=== PATIENT | male | born 1970 | race Caucasian/White ===

== ENCOUNTER 2023-12-14 08:10 | Emergency (ER) | payer OTHER, SELFPAY ==
[2023-12-14] VITALS (18 sets, daily range): BP systolic 125–177; BP diastolic 68–100; PULSE 84–108; TEMP 36.5; O2SAT 96–99; BMI 35.6
--- NOTE | 2023-12-14 08:29 | ECG_ITS ---
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
--- NOTE | 2023-12-14 08:29 | XR_ITS ---
The [address] [address] Patient Name: FLORY AGEE MRN: [id number] date: 1970 Sex: M Assigned Patient Location: ER Current Patient Location: ER Accession/Order Number: [id number] Exam Date: 12/14/2023 08:50 Report Date: 12/14/2023 09:13 At the request of: MICHELLE NUNES Procedure: XR chest 1V EXAM: Chest x-ray HISTORY: . chest pain . COMPARISON: None. TECHNIQUE: Single view of the chest FINDINGS: Heart and vascularity are unremarkable. Lungs are free of focal infiltrates. Grossly no bony abnormality is appreciated. EKG leads overlie the chest. XR/XR chest 1V IMPRESSION: Heart or lung disease identified. Electronically authenticated by: CARMELITA STEWART Date: 12/14/2023 09:13
[2023-12-14 08:40] LABS: Basophils Absolute Auto 0.1 10^3/uL (0.0-0.1); Basophils Percent Auto 0.6 % (0.2-2.0); Eosinophils Percent Auto 0.1 % (0.9-7.0); Hematocrit 47.6 % (42.0-54.0); Hemoglobin 15.2 g/dL (14.0-18.0); Immature Granulocytes Abs Auto 0.15 10^3/uL (0.00-0.03); Immature Granulocytes Pct Auto 1.8 % (0.0-0.5); Lymphocytes Percent Auto 11.5 % (20.5-60.0); Mean Corpuscular HGB Conc 31.9 g/dL (29.9-35.2); Mean Corpuscular Hemoglobin 27.9 pg (25.9-34.0); Mean Corpuscular Volume 87.5 fL (80.0-94.0); Mean Platelet Volume 10.2 fL (9.5-13.5); Monocytes Absolute Auto 0.8 10^3/uL (0.3-0.8); Monocytes Percent Auto 9.6 % (1.7-12.0); Neutrophils Absolute Auto 6.4 10^3/uL (1.4-6.5); Neutrophils Percent Auto 76.4 % (43.0-75.0); Platelet Count 188 10^3/uL (150-450); Red Blood Count 5.44 10^6/uL (4.70-6.10); Red Cell Distribution Width 13.3 % (11.0-15.0); White Blood Count 8.4 10^3/uL (4.0-11.0)
[2023-12-14 09:04] LABS: D Dimer 3.61 mg/L FEU (<=0.59)
--- NOTE | 2023-12-14 09:13 | CT_ITS ---
[address] [address] Patient Name: FLORY AGEE MRN: [id number] date: 1970 Sex: M Assigned Patient Location: ER Current Patient Location: ER Accession/Order Number: [id number] Exam Date: 12/14/2023 09:33 Report Date: 12/14/2023 10:36 At the request of: MICHELLE NUNES Procedure: CT angio chest EXAM: CT angio chest HISTORY: Dyspnea/elevated D-dimer COMPARISON: 12/14/2023 TECHNIQUE: Dose reduction techniques were achieved by using automated exposure control and/or adjustment of mA and/or kV according to patient size and/or use of iterative reconstruction technique.CT of the chest with contrast. FINDINGS: Inferior visualized portion of the thyroid gland is normal. No supraclavicular adenopathy. No axillary adenopathy. No mediastinal adenopathy. Heart size is normal. No pericardial effusion. Coronary artery calcifications. No pulmonary embolism evaluated to the level of the subsegmental pulmonary arteries. No acute aortic abnormality. Aortic arch branch vessels are patent. No acute osseous abnormality. No large pulmonary lung nodules or masses. Normal alignment of the thoracic spine. Vertebral body height is preserved. Intervertebral disc height is preserved. No acute abnormality of the visualized portions of the upper abdomen. CT/CT angio chest IMPRESSION: 1. No pulmonary embolism evaluated to the level of the subsegmental pulmonary arteries. 2. No acute aortic abnormality. 3. No acute abnormality of the visualized portions of the upper abdomen. Electronically authenticated by: BELINDA THORPE Date: 12/14/2023 10:36
--- NOTE | 2023-12-14 09:13 | ED.GENADUL1 ---
HPI HPI - General Adult General Chief complaint: Chest Pain Stated complaint: CHEST PAIN/FATIGUE Time Seen by Provider: 12/14/23 09:04 Source: patient and family Mode of arrival: walk-in History of Present Illness HPI narrative: This patient is here complaining of multiple symptoms. He says he took COVID test at home to make sure that was not a problem and it was negative. He does not have any cough and no real history of fever. He just has a little bit of fatigability decreased energy feel lightheaded. He has had coronary stents in the past and does take Plavix and aspirin on a daily basis. He has not had any swelling of his extremities and he denies any history of DVT or PE. He says his joints are achy but he does not notice any swelling of any of his joints. Does not have nausea vomiting or diarrhea. Has not had a change in his medications recently. This has been going on for several days. Related Data Home Medications ?Medication ?Instructions ?Recorded ?Confirmed clopidogrel 75 mg tablet 75 mg PO DAILY 12/14/23 12/14/23 metformin 500 mg tablet 1,000 mg PO BID 12/14/23 12/14/23 metoprolol tartrate 25 mg tablet 25 mg PO Q12H 12/14/23 12/14/23 pregabalin 100 mg capsule 100 mg PO Q12H 12/14/23 12/14/23 Allergies Allergy/AdvReac Type Severity Reaction Status Date / Time No Known Drug Allergies Allergy Verified 12/14/23 08:19 Opioid HPI Opioid Management Most Recent Opioid Data: No Data to Display Exam Narrative Exam Narrative: This patient is awake alert healthy does not appear an extremis. Modest anxiety. Pulse oximetry is normal on room air 98%. Overall healthy appearing skin is warm and dry mucous memories are moist and pink. There is no evidence of pallor or scleral icterus. Examination lungs shows lungs to be completely clear no wheeze rales or rhonchi Heart sounds are normal with no S3-S4 or murmur. There is no pericardial rub. Rhythm is normal with no ectopy during auscultation. Cognition mentation and neurological status is normal. Extremities showed no edema phlebitis or warmth. Additionally none of his joints are hot red or swollen. He does not complain of any any abdominal pain. Constitutional Vital Signs, click to edit/add: Last Vital Signs Temp 97.7 F 12/14/23 08:16 Pulse 89 12/14/23 10:40 Resp 24 H 12/14/23 10:40 BP 130/78 12/14/23 10:30 Pulse Ox 98 12/14/23 10:40 O2 Del Method Room Air 12/14/23 08:16 Course Vital Signs Vital signs: Vital Signs Temperature 97.7 F 12/14/23 08:16 Pulse Rate 108 H 12/14/23 08:16 Respiratory Rate 20 12/14/23 08:16 Blood Pressure 177/100 H 12/14/23 08:16 Pulse Oximetry 97 12/14/23 08:16 Oxygen Delivery Method Room Air 12/14/23 08:16 Temperature 97.7 F 12/14/23 08:16 Pulse Rate 89 12/14/23 10:40 Respiratory Rate 24 H 12/14/23 10:40 Blood Pressure 130/78 12/14/23 10:30 Pulse Oximetry 98 12/14/23 10:40 Oxygen Delivery Method Room Air 12/14/23 08:16 Medical Decision Making [facility] Narrative Medical decision making narrative: Patient presents with months of nonspecific symptomatology and no obvious abnormalities on his clinical exam. Nonetheless we want to rule out underlying cardiovascular disease or possible pulmonary embolism. In fact his D-dimer was substantially elevated so CTA was pursued. That study was read by the radiologist as negative for any acute findings. Cardiac troponin white blood cell count and basic chemistries were essentially normal with a mild abnormality of serum sodium. He does take metformin his glucose very minimally elevated but I do not believe is responsible for his symptoms. Most likely explanation is that he has a viral syndrome. He was advised to follow-up with his primary care doctor at this time no antibiotic therapy seem warranted at this moment Lab Data Labs: Lab Results 12/14/23 Range/Units 08:20 WBC 8.4 (4.0-11.0) 10^3/uL RBC 5.44 (4.70-6.10) 10^6/uL Hgb 15.2 (14.0-18.0) g/dL Hct 47.6 (42.0-54.0) % MCV 87.5 (80.0-94.0) fL MCH 27.9 (25.9-34.0) pg MCHC 31.9 (29.9-35.2) g/dL RDW 13.3 (11.0-15.0) % Plt Count 188 (150-450) 10^3/uL MPV 10.2 (9.5-13.5) fL Neut % (Auto) 76.4 H (43.0-75.0) % Lymph % (Auto) 11.5 L (20.5-60.0) % [place] % (Auto) 9.6 (1.7-12.0) % Eos % (Auto) 0.1 L (0.9-7.0) % Baso % (Auto) 0.6 (0.2-2.0) % Neut # (Auto) 6.4 (1.4-6.5) 10^3/uL Lymph # (Auto) 1.0 L (1.2-3.8) 10^3/uL [place] # (Auto) 0.8 (0.3-0.8) 10^3/uL Eos # (Auto) 0.0 (0.0-0.7) 10^3/uL Baso # (Auto) 0.1 (0.0-0.1) 10^3/uL Abs Immat Gran (auto) 0.15 H (0.00-0.03) 10^3/uL Imm/Tot Granulo (auto) 1.8 H (0.0-0.5) % D-Dimer 3.61 H* (<=0.59) mg/L FEU Sodium 127 L (136-145) mmol/L Potassium 4.4 (3.5-5.1) mmol/L Chloride 92 L (98-107) mmol/L Carbon Dioxide 9.1 L (21.0-32.0) mmol/L Anion Gap 30.3 BUN 23.0 H (7.0-18.0) mg/dL Creatinine 1.26 (0.70-1.30) mg/dL Est GFR ( Amer) >60 (>=60) Est GFR (Non-Af Amer) 60 (>=60) BUN/Creatinine Ratio 18.3 Glucose 149 H (74-106) mg/dL Calcium 9.1 (8.5-10.1) mg/dL Total Bilirubin 0.7 (0.2-1.0) mg/dL Direct Bilirubin 0.2 (0.0-0.2) mg/dL AST 37 (15-37) U/L ALT 62 (16-63) U/L Alkaline Phosphatase 82 (46-116) U/L Troponin I High Sens 7.4 (4.0-76.1) pg/mL NT-Pro-B Natriuret Pep 286.0 (<=900.0) pg/mL Total Protein 9.0 H (6.4-8.2) g/dL Albumin 3.9 (3.4-5.0) g/dL Globulin 5.1 g/dL Albumin/Globulin Ratio 0.8 Discharge Plan Discharge Stand Alone Forms: Portal Instructions Chief Complaint: Chest Pain Clinical Impression: Acute viral syndrome Patient Disposition: Home, Self-Care Time of Disposition Decision: 10:55 Prescriptions / Home Meds: No Action metformin 500 mg tablet 1,000 mg PO BID clopidogrel 75 mg tablet 75 mg PO DAILY metoprolol tartrate 25 mg tablet 25 mg PO Q12H pregabalin 100 mg capsule 100 mg PO Q12H Print Language: Lao Additional Instructions: Follow-up with your primary care doctor if symptoms would persist for consideration of further evaluation and testing Referrals: Physician,Non-Staff, [Primary Care Provider] - 1 week
[2023-12-14 09:58] LABS: Anion Gap 30.3; BUN Creatinine Ratio 18.3; Calcium 9.1 mg/dL (8.5-10.1); Carbon Dioxide 9.1 mmol/L (21.0-32.0); Chloride 92 mmol/L (98-107); Estimated GFR (African America >60 (>=60); Estimated GFR (Non-African Ame 60 (>=60); Glucose 149 mg/dL (74-106); Potassium 4.4 mmol/L (3.5-5.1); Sodium 127 mmol/L (136-145); Troponin I High Sensitivity 7.4 pg/mL (4.0-76.1)
[2023-12-14 09:59] LABS: Alanine Aminotransferase 62 U/L (16-63); Albumin Globulin Ratio 0.8; Albumin Level 3.9 g/dL (3.4-5.0); Alkaline Phosphatase 82 U/L (46-116); Aspartate Amino Transferase 37 U/L (15-37); Bilirubin Direct 0.2 mg/dL (0.0-0.2); Bilirubin Total 0.7 mg/dL (0.2-1.0); Globulin 5.1 g/dL
== END 2023-12-14 11:10 | disposition home or self-care (01) ==
PROVIDERS: Emergency Provider Emergency Medicine Emergency Medical Services
DX: B34.9 Viral infection, unspecified (principal); Z95.5 Presence of coronary angioplasty implant and graft; Z79.02 Long term (current) use of antithrombotics/antiplatelets; Z79.82 Long term (current) use of aspirin
CPT/HCPCS: 36415; 71045; 71275; 80048; 80076; 83880; 84484; 85025; 85378; 93005; 99285; Q9967

== ENCOUNTER 2023-12-25 18:43 | Outpatient (OUT) | payer OTHER, SELFPAY ==
--- NOTE | 2023-12-25 18:48 | US_ITS ---
[address] [address] Patient Name: FLORY AGEE MRN: [id number] date: 1970 Sex: M Assigned Patient Location: US Current Patient Location: Accession/Order Number: [id number] Exam Date: 12/25/2023 18:55 Report Date: 12/26/2023 07:15 At the request of: SUSANA STEPHENS Procedure: US venous doppler LE LT EXAM: US venous doppler LE LT HISTORY: GENERALIZED EDEMA R60.1 COMPARISON: None. TECHNIQUE: Grayscale, color and Doppler FINDINGS: Region: Left leg Thrombus: None Flow: Normal Compressibility: Normal Augmentation: Normal Other: Subcutaneous edema in the calf US/US venous doppler LE LT IMPRESSION: No deep or superficial vein thrombus identified in the left leg Electronically authenticated by: CARMELITA LI Date: 12/26/2023 07:15
--- OUTSIDE RECORDS SUMMARY | 2023-12-25 18:48 | XMS_ITS | CCD ---
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 Role Phone Den Lloyd Unavailable Unavailable NONE, XXXX Unavailable Unavailable Den Lloyd Unavailable Unavailable NONE, XXXX Unavailable Unavailable DR IVON YOUNG Admitting Unavailable DR IVON YOUNG Attending Unavailable [facility] Primary Care Unavailable DR IVON YOUNG Consulting Unavailable NATASHA Kenyon Attending Provider Abdifatah Kenyon Unavailable NO FAMILY, PHYSICIAN Primary Care Unavailable Abdifatah Kenyon Admitting Unavaila ble Abdifatah Kenyon Attending Unavaila ble Medications Current Medications Medication Drug Class(es) Dates Sig (Normalized) Sig (Original) clopidogrel 75 mg oral tablet (1 source) P2Y12 Platelet Inhibitor take 1 tablet by mouth every twenty-four hours Plavix 75 MG 1 tablet Orally Once a day Active metoprolol tartrate 50 mg oral tablet (1 source) beta-Adrenergic Alicia take 1 tablet by mouth every twelve hours Metoprolol Tartrate 50 MG 1 tablet with food Orally Twice a day Active naproxen 500 mg oral tablet (1 source) Nonsteroidal Anti-inflammatory Drug Start: 01-07-2023 take 1 tablet by mouth every twelve hours Naproxen 500 MG 1 tablet with food or milk Orally Twice a day for 7 days Dec, Active rosuvastatin calcium 10 mg oral tablet (1 source) HMG-CoA Reductase Inhibitor take 1 tablet by mouth every twenty-four hours Crestor 10 MG 1 tablet Orally Once a day Active SITagliptin 50 mg oral tablet (1 source) Dipeptidyl Peptidase 4 Inhibitor Januvia 50 MG as directed Orally Active Problems Active Problems Problem Classification Problem Date Documented Da te Episodic/Chronic Acute bronchitis (1 source) Acute bronchitis, unspecified; Translations: [ACUTE BRONCHITIS UNSPECIFIED] Onset: 03-25-2023 Episodic Sprains and strains (1 source) Strain of unspecified muscle and tendon at ankle and foot level, left foot, initial encounter Episodic Unclassified (3 sources) CONTACT W/AND (SUSP) EXPOS COVID-19; Translations: [CONTACT W/AND (SUSP) EXPOS COVID-19] Onset: 10-06-2022 Past or Other Problems Problem Classification Problem Date Documented Da te Episodic/Chronic Other connective tissue disease (2 sources) Pain in left foot; Translations: [Pain in left foot] Onset: 01-07-2023 Episodic Unclassified (1 source) CONTACT W/AND (SUSP) EXPOS COVID-19; Translations: [CONTACT W/AND (SUSP) EXPOS COVID-19] Onset: 10-03-2022 Results Test Name Value Interpretation Reference Range Facil ity XR foot LT min 3V*on 023 XR foot LT min 3V* [facility] [place] [address] XRay Report Signed Patient: Anthony Garrett MR#: [id number] : 1970 Acct:[id number] Age/Sex: 52 / M ADM Date: 01/07/23 Loc: [id number] Room: Type: [facility] Attending Dr: Abdifatah Kenyon NP-C Copies to: Abdifatah PRITCHETT-C Ordering Provider: Abdifatah WILBURNP-C Date of Service: 01/07/23 XR/XR foot LT min 3V*: Foot pain, left 3 views left foot plain film COMPARISON:None HISTORY: Left foot pain ACUTE FINDINGS: None DEGENERATIVE CHANGE: Unremarkable SOFT TISSUE FINDINGS: Unremarkable JOINT EFFUSION: None POSTOP CHANGES: None BONE MINERALIZATION: Adequate XR/XR foot LT min 3V* IMPRESSION: No acute findings. Impression dictated by: Efe Doran M.D.01/07/2023 6:08 PM Dictation Location: [place] [address] Transcribed By: [facility] 01/07/231807 Dictated By: Efe Doran DO 01/07/231803 Signed By: 01/07/231807 Normal [facility] Covid-19 PCR (CVDTB)on 09-13 SARS-CoV-2 (COVID-19) RNA NOVA+probe Ql (Unsp spec) Not detected Normal NOT DETECTED [facility] Comment on above: Result Comment: This test is not yet approved or cleared by the [place] FDA. When there are no FDA-approved or cleared tests available, and other criteria are met, FDA can make tests available under an emergency access mechanism called an Emergency Use Authorization (EUA). The EUA for this test is supported by the [place] of Health and Human Service's (HHS's) declaration that circumstances exist to justify the emergency use of in vitro diagnostics for the detection and/or diagnosis of the virus that causes COVID-19. This EUA will remain in effect (meaning this test can be used) for the duration of the COVID-19 declaration justifying emergency of IVDs, unless it is terminated or revoked by FDA (after which the test may no longer be used). When diagnostic testing is negative, the possibility of a false negative should be considered in the context of a patient's recent exposures and the presence of clinical signs and symptoms consistent with SARS-CoV-2. Performed By: #### C VDTB #### [facility] [address] [place] [address] Dr. Ksenia Rolle SYMPTOMATIC COVID-19 ANTIGEN on 10-03-2022 EUA Statement SEE BELOW Normal The [facility] Comment on above: Result Comment: This test has not been FDA cleared or approved, but has been authorized by the FDA under an Emergency Use Authorization (EUA) for use by authorized laboratories certified under CLIA that meet the requirements to perform moderate or high complexity testing. This test has been authorized only for the detection of proteins from SARS-CoV-2, not for any other viruses or pathogens. The emergency use of this test is authorized for the duration of the declaration that circumstances exist justifying the authorization of emergency use of in vitro diagnostic tests for detection and/or diagnosis of Covid-19 under section 564(b)(1) of the Act, 21 U.S.C. 360bbb-3(b)(1), unless the declaration is terminated or authorization is revoked sooner. Performed By: #### C VDAGS #### [facility] [address] [place] [address] Dr. Ksenia Rolle SARS-CoV-2 (COVID-19) RNA NOVA+probe Ql (Unsp spec) Negative Normal NEGATIVE [facility] Comment on above: Performed By: #### C VDAGS #### [facility] [address] [address] [address] Ksenia Rolle Vital Signs Date Time Vital Sign Value Performing Clinician Facility 01-07-2023 17:35-0400 Body height Abdifatah Kenyon Other [facility] Other 01-07-2023 17:35-0400 Body mass index (BMI) [Ratio] 38.02 kg/m2 Abdifatah Kenyon Other [facility] Other 01-07-2023 17:35-0400 Body weight 120.2 kg Abdifatah Kenyon Other [facility] Other 01-07-2023 17:35-0400 Diastolic blood pressure 80 mm[Hg] Abdifatah Kenyon Other [facility] Other 01-07-2023 17:35-0400 Respiratory rate 20 /min Abdifatah Kenyon Other [facility] Other 01-07-2023 17:35-0400 SaO2% (BldA) [Mass fraction] 99 % Abdifatah Kenyon Other [facility] Other 01-07-2023 17:35-0400 Systolic blood pressure 121 mm[Hg] Abdifatah Kenyon Other [employer] Other Encounters Encounter Date Encounter Type Care Provider Facility Start: 01-07-2023 End: 01-07-2023 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 2017 Self-pay 1970 Unknown [id number] 1959 Unknown [id number] Unknown [id number] Social History Date Type Detail Facility Tobacco smoking status NHIS Unknown if ever smoked [facility] Work Phone: Start: 1970 Sex Assigned At Male [facility] Sex Assigned At Sex Assigned At Bir th [employer] Other Evaluation note 01-07-2023 Note Date & Type Note Facility 01-07-2023 Evaluation note Encounter Date Diagnosis Assessment Notes Dec, Foot pain, left (ICD-10 - M79.672) Dec, Strain of left foot, initial encounter (ICD-10 - S96.912A) Rest, ice as needed, keep the foot elevated. Follow up with pcp in 7 days if symptoms do not improve. I personally reviewed and interpreuted all of the xray imaging. There are nor appreciable fractures. Given history, exam, and imaging, findings, diagnosis is consistent with strain of left foot. Will prescribe course of naproxen. Offered patient doris wrap but he would prefer not to use an doris wrap. [facility] [employer] Other Evaluation note Note Date & Type Note Facility Evaluation note No assessment information availa [facility] Work Phone: History general Narrative - Reported Note Date & Type Note Facility History general Narrative - Reported Type Medical History HTN Medical History diabetic Surgical History appendix Surgical History knee Surgical History vasectomy [facility] [employer] Other Summary Purpose Family History No Family History Records FoundNo Family History Records FoundNo Family History Records Found Advance Directives No Advanced Directives Records FoundNo Advanced Directives Records FoundNo Advanced Directives Records Found Additional Source Comments (unrecognized sect ion and content) No Status Records FoundNo Status Records FoundNo Status Records Found INFORMATION SOURCE (unrecogn ized section and content) DATE CREATED AUTHOR 01/06/2018 [facility] DATE CREATED AUTHOR AUTHOR'S ORGANIZ ATION 10/07/2022 [facility] DATE CREATED AUTHOR AUTHOR'S ORGANIZ ATION 12/24/2023 [facility] Care Teams (unrecognized sec tion and content) Team Status: Inactive Member Role Status Dates GERBER [employer] Attending Provider Activ e Goals (unrecognized section and content) Goals may be documented in a n alternate sectionNo Information REASON FOR VISIT (unrecogniz ed section and content) POSS LEFT FOOT INJURY FOR RECORDS PERTAINING TO PATIENTS WHO ARE OR HAVE BEEN ENROLLED IN A CHEMICAL DEPENDENCY/SUBSTANCEABUSE PROGRAM, SOME INFORMATION MAY BE OMITTED. This clinical summary was aggregated from multiple sources. Caution should be exercised in using it in the provision of clinical care. This summary normalizes information from multiple sources, and as a consequence, information in this document may materially change the coding, format and clinical context of patient data. In addition, data may be omitted in some cases. CLINICAL DECISIONS SHOULD BE BASED ON THE PRIMARY CLINICAL RECORDS. [employer] provides no warranty or guarantee of the accuracy or completeness of information in this document.
== END 2023-12-25 18:44 | disposition home or self-care (01) ==
LOC: US 18:44
PROVIDERS: Visit Provider Podiatrist
DX: R60.1 Generalized edema (principal)
CPT/HCPCS: 93971